=== PATIENT | female | born 1980 | race American Indian/Alaskan Native ===

== ENCOUNTER 2018-01-12 14:14 | Emergency (ER) | payer OTHER ==
[2018-01-12 15:17] VITALS: RESP 18; BMI 35.9
--- NOTE | 2018-01-12 15:18 | ED PDOC ---
Arrival/HPI - General Chief Complaint: Headache Time Seen by Provider: 01/12/18 15:09 Historian: Patient - History of Present Illness Narrative History of Present Illness (Text): 01/12/18 15:15 37 year old female, whose past medical history includes hypertension and Lupus, who presents to the Emergency Department complaining of a headache x 2 days. Patient notes associated dizziness. Patient notes the headache will last a couple hours then go away. Patient states she had a 1 headache yesterday and 2 today. Patient states she took aspirin, with minimal relief. Patient denies any fever, chills, chest pain, shortness of breath, nausea, vomiting, diarrhea, urinary symptoms, neck pain, or any other complaints. Time/Duration: < week (2 DAYS) Symptom Onset: Sudden Symptom Course: Unchanged Activities at Onset: Light Context: Home Past Medical History - Provider Review Nursing Documentation Reviewed: Yes - Infectious Disease Hx of Infectious Diseases: None - Cardiac Hx Cardiac Disorders: Yes Hx Hypertension: Yes - Pulmonary Hx Respiratory Disorders: No - Neurological Hx Neurological Disorder: No - HEENT Hx HEENT Disorder: No - Renal Hx Renal Disorder: No - Endocrine/Metabolic Hx Endocrine Disorders: Yes Hx Systemic Lupus Erythematosus: Yes - Hematological/Oncological Hx Blood Disorders: No - Integumentary Hx Dermatological Disorder: No - Musculoskeletal/Rheumatological Hx Musculoskeletal Disorders: No - Gastrointestinal Hx Gastrointestinal Disorders: No - Genitourinary/Gynecological Hx Genitourinary Disorders: No - Psychiatric Hx Psychophysiologic Disorder: No Hx Substance Use: No Family/Social History - Physician Review Nursing Documentation Reviewed: Yes Family/Social History: Unknown Family HX Smoking Status: Never Smoked Hx Alcohol Use: No Hx Substance Use: No Allergies/Home Meds Allergies/Adverse Reactions: Allergies shellfish derived Allergy (Verified 01/12/18 14:58) SWELLING Home Medications: Home Meds Medication Instructions Recorded Confirmed Hydroxychloroquine Sulfate 200 mg PO BID 01/12/18 01/12/18 [Plaquenil] amLODIPine [Norvasc] 10 mg PO DAILY 01/12/18 01/12/18 Review of Systems - Physician Review All systems were reviewed & negative as marked: Yes - Review of Systems Constitutional: Normal Eyes: Normal ENT: Normal Respiratory: Normal. absent: SOB, Cough Cardiovascular: Normal. absent: Chest Pain Gastrointestinal: Normal. absent: Abdominal Pain, Diarrhea, Nausea Genitourinary Female: Normal. absent: Dysuria, Frequency Musculoskeletal: Back Pain. absent: Neck Pain Skin: Normal. absent: Rash Neurological: Headache, Dizziness Endocrine: Normal Hemo/Lymphatic: Normal Psychiatric: Normal Physical Exam Vital Signs Reviewed: Yes Vital Signs Temp Pulse Resp BP Pulse Ox 01/12/18 17:50 97.9 F 66 18 140/88 97 01/12/18 16:42 159/80 H 01/12/18 14:58 97.7 F 76 18 154/93 H 100 Temperature: Afebrile Blood Pressure: Hypertensive Pulse: Regular Respiratory Rate: Normal Appearance: Positive for: Well-Appearing, Non-Toxic, Comfortable Pain Distress: None Mental Status: Positive for: Alert and Oriented X 3 - Systems Exam Head: Present: Atraumatic, Normocephalic Pupils: Present: PERRL Extroacular Muscles: Present: EOMI Conjunctiva: Present: Normal Mouth: Present: Moist Mucous Membranes Neck: Present: Normal Range of Motion. No: MIDLINE TENDERNESS, Paraspinal Tenderness, JVD, Bruit Respiratory/Chest: Present: Clear to Auscultation, Good Air Exchange. No: Respiratory Distress, Accessory Muscle Use Cardiovascular: Present: Regular Rate and Rhythm, Normal S1, S2. No: Murmurs Abdomen: No: Tenderness, Distention, Peritoneal Signs Back: Present: Normal Inspection Upper Extremity: Present: Normal Inspection. No: Cyanosis, Edema Lower Extremity: Present: Normal Inspection. No: Edema Neurological: Present: GCS=15, CN II-XII Intact, Speech Normal, Motor Func Grossly Intact, Normal Sensory Function, Gait Normal, Memory Normal Skin: Present: Warm, Dry, Normal Color. No: Rashes Psychiatric: Present: Alert, Oriented x 3, Normal Insight, Normal Concentration Medical Decision Making ED Course and Treatment: 01/12/18 15:19 Impression: 37 year old female presents to the Emergency Department complaining of a headache x 2 days. Plan: -- CT Head -- EKG -- Labs -- Tylenol -- Norvasc -- Reglan -- Reassess and disposition Progress Notes: 01/12/18 18:14 CT Head reviewed, shows: IMPRESSION: No acute intracranial hemorrhage. 01/12/18 18:24 EKG reviewed, shows NSR at 83 bpm. 01/12/18 18:31 Patient feels much better. CT head negative. No dizziness. Patient will be given her Norvasc 5mg PO daily and she will make sure to follow up with her PMD for follow up since she ran out of her meds. She was advised to return to the ED if symptoms worsen or any other concern. - Lab Interpretations Lab Results: 01/12/18 16:12 01/12/18 16:12 Lab Results 01/12/18 16:12: Sodium 141, Potassium 3.8, Chloride 102, Carbon Dioxide 28, Anion Gap 15, BUN 13, Creatinine 0.6 L, Est GFR ( Amer) > 60, Est GFR ( Non-Af Amer) > 60, Random Glucose 92, Calcium 8.9 01/12/18 16:12: WBC 5.3, RBC 5.90, Hgb 12.8, Hct 39.4, MCV 66.8 L, MCH 21.7 L, MCHC 32.5, RDW 15.5 H, Plt Count 254, Gran % 38.9 L, Lymph % (Auto) 51.4 H, Kingfisher % (Auto) 7.0 H, Eos % (Auto) 2.5, Baso % (Auto) 0.2, Gran # 2.06, Lymph # ( Auto) 2.7, Kingfisher # (Auto) 0.4, Eos # (Auto) 0.1, Baso # (Auto) 0.01 - RAD Interpretation Radiology Orders: 01/12/18 15:19 HEAD W/O CONTRAST [CT] Stat - Medication Orders Current Medication Orders: Discontinued Medications Acetaminophen (Tylenol 325mg Tab) 650 mg PO STAT STA Stop: 01/12/18 15:20 Last Admin: 01/12/18 16:42 Dose: 650 mg MAR Pain/Vitals Document 01/12/18 16:42 CAST (Rec: 01/12/18 16:42 CAST [id number]) Pain Reassessment Is This A Pain ReAssessment? No Sleep Is patient sleeping during reassessment? No Presence of Pain Presence of Pain Yes Pain Scale Used Pain Scale Used Numeric Location Pain Location Body Plant Puller Description Constant Intensity 6 Scale Used Numeric Pain Behavior Facial Grimacing Aggravating Factors Changing Position Alleviating Factors Medication Amlodipine Besylate (Norvasc) 10 mg PO STAT STA Stop: 01/12/18 15:21 Last Admin: 01/12/18 16:42 Dose: 10 mg MAR Blood Pressure Document 01/12/18 16:42 [email or web address] (Rec: 01/12/18 16:42 [email or web address] [id number]) Blood Pressure Blood Pressure (100/60-150/90) 159/80 Metoclopramide HCl (Reglan) 10 mg IVP STAT STA Stop: 01/12/18 15:20 Last Admin: 01/12/18 16:42 Dose: 10 mg IVP Administration Document 01/12/18 16:42 [email or web address] (Rec: 01/12/18 16:42 [email or web address] [id number]) Charges for Administration # of IVP Administrations 1 - Scribe Statement The provider has reviewed the documentation as recorded by the Scribe Documented by Janay Calix acting as a scribe for Vasiliy Fam DO. Disposition/Present on Arrival - Present on Arrival Any Indicators Present on Arrival: No History of DVT/PE: No History of Uncontrolled Diabetes: No Urinary Catheter: No History of Decub. Ulcer: No History Surgical Site Infection Following: None - Disposition Have Diagnosis and Disposition been Completed?: Yes Diagnosis: Hypertension, Headache Disposition: HOME/ ROUTINE Disposition Time: 18:32 Patient Plan: Discharge Patient Problems: Current Active Problems Problem Status Onset Headache Acute Hypertension Acute Condition: IMPROVED Discharge Instructions (ExitCare): Tension Headache, High Blood Pressure in Adults Additional Instructions: PRINCESS PERRY, thank you for letting us take care of you today. Your provider was Vasiliy Fam DO and you were treated for HEADACHE/ HYPERTENSION. The emergency medical care you received today was directed at your acute symptoms. If you were prescribed any medication, please fill it and take as directed. It may take several days for your symptoms to resolve. Return to the Emergency Department if your symptoms worsen, do not improve, or if you have any other problems. Please contact your doctor or call one of the physicians/clinics you have been referred to that are listed on the Patient Visit Information form that is included in your discharge packet. Bring any paperwork you were given at discharge with you along with any medications you are taking to your follow up visit. Our treatment cannot replace ongoing medical care by a primary care provider outside of the emergency department. Thank you for allowing the [facility] team to be part of your care today. If you had an X-Ray or CT scan: A Radiologist will review the ED reading if any change in treatment is needed we will contact you. If you had a blood, urine, or wound culture: It will take several days for the results, if any change in treatment is needed we will contact you. If you had an STI test: It will take 48 hours for the results. Please call after 1 week if you have not heard back. Prescriptions: Acetaminophen [Tylenol 325mg tab] 650 mg PO Q4 #60 tab amLODIPine [Norvasc] 5 mg PO DAILY #20 tab Referrals: Dolores Pfeiffer [Primary Care Provider] - Follow up with primary Forms: [facility] (Cuban), WORK NOTE
[2018-01-12 16:22] LABS: BASO # 0.01 K/mm3 (0.0-2.0); BASO % 0.2 % (0.0-3.0); EOS # 0.1 (0.0-0.7); EOS % 2.5 % (1.5-5.0); GRAN # 2.06 (1.4-6.5); GRAN % 38.9 % (50.0-68.0); HEMOGLOBIN 12.8 g/dL (12.0-16.0); LYMPH # 2.7 (1.2-3.4); LYMPH % 51.4 % (22.0-35.0); MEAN CELL VOLUME 66.8 fl (80.0-105.0); MEAN CORPUSCULAR HEMOGLOBIN 21.7 pg (25.0-35.0); MEAN CORPUSCULAR HGB CONC 32.5 g/dl (31.0-37.0); MONO # 0.4 (0.1-0.6); PLATELET COUNT 254 10^3/uL (120.0-450.0); RED CELL DISTRIBUTION WIDTH 15.5 % (11.5-14.5); WHITE BLOOD COUNT 5.3 10^3/ul (4.5-11.0)
[2018-01-12 16:30] LABS: BLOOD UREA NITROGEN 13 mg/dL (7-21); CALCIUM 8.9 mg/dL (8.4-10.5); GFR AFRICAN-AMERICAN > 60; GFR NON-AFRICAN AMERICAN > 60
[2018-01-12 17:51] VITALS: BP 140/88
--- NOTE | 2018-01-12 18:11 | CT ---
Date of service: 01/12/2018 PROCEDURE: CT HEAD WITHOUT CONTRAST. HISTORY: Uncontrolled hypertension, headaches COMPARISON: None available. TECHNIQUE: Axial computed tomography images were obtained through the head/brain without intravenous contrast. Radiation dose: Total exam DLP = 1094.21 mGy-cm. This CT exam was performed using one or more of the following dose reduction techniques: Automated exposure control, adjustment of the mA and/or kV according to patient size, and/or use of iterative reconstruction technique. FINDINGS: HEMORRHAGE: No intracranial hemorrhage. BRAIN: No mass effect or edema. No atrophy or chronic microvascular ischemic changes. VENTRICLES: Unremarkable. No hydrocephalus. CALVARIUM: Unremarkable. PARANASAL SINUSES: Unremarkable as visualized. No significant inflammatory changes. MASTOID AIR CELLS: Unremarkable as visualized. No inflammatory changes. OTHER FINDINGS: Questionable borderline/mild exophthalmos. Prominent adenoids. IMPRESSION: No acute intracranial hemorrhage.
[2018-01-12 19:04] VITALS: PULSE 68; TEMP 98; O2SAT 99
--- NOTE | 2018-01-12 22:26 | CARD ---
APPROVED REPORT Date of service: 01/12/2018 EKG Measurement Heart [id number] <Conclusion> Normal sinus rhythm Prolonged QT Abnormal ECG
== END 2018-01-12 19:04 | disposition home or self-care (01) ==
LOC: ED 14:14 → MERGE 14:14 → ED 19:04
DX: I10 Essential (primary) hypertension (principal); R51 Headache; M32.9 Systemic lupus erythematosus, unspecified
CPT/HCPCS: 70450; 80048; 85025; 93005; 96374; 99285; J2765